=== PATIENT | female | born 1960 | race Caucasian/White ===

== ENCOUNTER 2021-12-18 15:54 | Emergency (ER) | payer BC, OTHER ==
[~2021-12-18] VITALS: Ht 177 cm; Wt 71.5 kg
[~2021-12-18 15:54] MED LIST: ACHD5005; OLME1TAB18; SCOP1PAT10
--- NOTE | 2021-12-18 16:11 | ED Cardiac General ---
History of Present Illness General Chief Complaint: Cardiac/General Problems Stated Complaint: HIGH BP History of Present Illness Date Seen by Provider: Dec 18, 2021 Time Seen by Provider: 16:05 Initial Comments 61 yr F with PMH of HTN is here with c/o elevated BP and headache today morning. She took Ibuprofen for the headache and it has since resolved. Patient takes losartan half tablet of 12.5 daily, which means 6.25mg daily, and is compliant with her medication regimen. Patient does not normally check her blood pressure on a daily basis, however today she had a headache so she checked her BP and she noticed that it was very high. Denies chest pain, palpitations, shortness of breath, dizziness, nausea, and vomiting. Allergies and Home Medications Allergies Coded Allergies: No Known Drug Allergies (Unverified , 12/18/21) Patient Home Medication List Home Medication List Reviewed: Yes Review of Systems Review of Systems Constitutional: no symptoms reported EENTM: No Symptoms Reported Respiratory: No Symptoms Reported Cardiovascular: Other Gastrointestinal: No Symptoms Reported Genitourinary: No Symptoms Reported Musculoskeletal: no symptoms reported Skin: no symptoms reported Psychiatric/Neurological: No Symptoms Reported Endocrine: No Symptoms Reported Hematologic/Lymphatic: No Symptoms Reported Physical Exam Vital Signs Vital Signs - First Documented 12/18/21 12/18/21 16:05 17:55 Temp 36.1 Pulse 80 Resp 16 B/P (MAP) 221/116 (151) Pulse Ox 100 O2 Delivery Room Air Capillary Refill : Height, Weight, BMI Height: '" Weight: lbs. oz. kg; BMI Method: General Appearance: No Apparent Distress HEENT: PERRL/EOMI, Normal ENT Inspection Neck: Full Range of Motion, Supple Respiratory: Chest Non Tender, Lungs Clear, Normal Breath Sounds Cardiovascular: Regular Rate, Rhythm, No Murmur, Normal Peripheral Pulses Gastrointestinal: Normal Bowel Sounds, No Pulsatile Mass, Non Tender, Soft Extremity: Normal Range of Motion Neurologic/Psychiatric: Alert, Oriented x3 Skin: Normal Color Progress/Results/Core Measures Results/Orders Lab Results Laboratory Tests Test 12/18/21 16:15 Range/Units White Blood Count 6.4 4.3-11.0 10^3/uL Red Blood Count 4.76 3.80-5.11 10^6/uL Hemoglobin 13.6 11.5-16.0 g/dL Hematocrit 43 35-52 % Mean Corpuscular Volume 89 80-99 fL Mean Corpuscular Hemoglobin 29 25-34 pg Mean Corpuscular Hemoglobin Concent 32 32-36 g/dL Red Cell Distribution Width 13.6 10.0-14.5 % Platelet Count 191 130-400 10^3/uL Mean Platelet Volume 11.1 9.0-12.2 fL Immature Granulocyte % (Auto) 0 % Neutrophils (%) (Auto) 40 L 42-75 % Lymphocytes (%) (Auto) 43 12-44 % Monocytes (%) (Auto) 15 H 0-12 % Eosinophils (%) (Auto) 2 0-10 % Basophils (%) (Auto) 1 0-10 % Neutrophils # (Auto) 2.6 1.8-7.8 10^3/uL Lymphocytes # (Auto) 2.8 1.0-4.0 10^3/uL Monocytes # (Auto) 0.9 0.0-1.0 10^3/uL Eosinophils # (Auto) 0.1 0.0-0.3 10^3/uL Basophils # (Auto) 0.0 0.0-0.1 10^3/uL Immature Granulocyte # (Auto) 0.0 0.0-0.1 10^3/uL Sodium Level 140 135-145 MMOL/L Potassium Level 4.0 3.6-5.0 MMOL/L Chloride Level 101 98-107 MMOL/L Carbon Dioxide Level 24 21-32 MMOL/L Anion Gap 15 H 5-14 MMOL/L Blood Urea Nitrogen 21 H 7-18 MG/DL Creatinine 0.80 0.60-1.30 MG/DL Estimat Glomerular Filtration Rate 84 BUN/Creatinine Ratio 26 Glucose Level 98 70-105 MG/DL Calcium Level 9.7 8.5-10.1 MG/DL Corrected Calcium 8.5-10.1 MG/DL Total Bilirubin 0.7 0.1-1.0 MG/DL Aspartate Amino Transf (AST/SGOT) 25 5-34 U/L Alanine Aminotransferase (ALT/SGPT) 16 0-55 U/L Alkaline Phosphatase 105 40-136 U/L Troponin I < 0.30 <0.30 NG/ML Total Protein 7.5 6.4-8.2 GM/DL Albumin 4.9 H 3.2-4.5 GM/DL My Orders Orders - JENNIFER GODINEZ MD Cbc With Automated Diff (12/18/21 16:12) Comprehensive Metabolic Panel (12/18/21 16:12) Troponin I Fs (12/18/21 16:12) Ekg Tracing (12/18/21 16:12) Monitor-Rhythm Ecg Trace Only (12/18/21 16:12) Clonidine Tablet (Catapres Tablet) (12/18/21 16:25) Clonidine Tablet (Catapres Tablet) (12/18/21 16:25) Clonidine Tablet (Catapres Tablet) (12/18/21 17:32) Vital Signs/I&O 12/18/21 12/18/21 16:05 17:55 Temp 36.1 Pulse 80 78 Resp 16 16 B/P (MAP) 221/116 (151) 148/100 Pulse Ox 100 100 O2 Delivery Room Air Room Air Progress Progress Note : Progress Note HYPERTENSIVE URGENCY - EKG: unchanged - Labs unremarkable - Clonidine 0.1mg STAT x2 Systolic improved from 190's to 170's on first tab, then 140's by 2nd tab. Headache resolved - Advised to increase Losartan to one full tab daily, and f/u with PCP for further assessment and medication adjustment. - F/u with PCP tomorrow -The patient was seen in the ED, and treated appropriately to presentation at a specific point in time. Patient is informed that there is a possibility that disease and illness can evolve and change in acuity rapidly or slowly after patient is discharged from the ER. Precautionary advice given to the patient for immediate return to ER if symptoms worsen or do not resolve, and to seek emergency care sooner rather than later. Pt also advised on the importance of PCP follow up and compliance with management and follow up plan. Pt verbally expressed understanding. Departure Impression Primary Impression: Hypertensive urgency Disposition: HOME, SELF-CARE Condition: Improved Departure-Patient Inst. Referrals: OTF PATIÑO APRN (PCP/Family) Primary Care Physician Patient Instructions: High Blood Pressure (DC), Heart Healthy Diet Add. Discharge Instructions: take full tablet of Losartan daily and f/u with PCP tomorrow for further adj ustment of BP medications. - Return to ER if symptoms worsen or do not improve. All discharge instructions reviewed with patient and/or family. Voiced understanding. JENNIFER GODINEZ MD Dec 18, 2021 16:11
[2021-12-18] MEDS ORDERED: cloNIDine 0.1 MG (CATAPRES) TAB PO STA ×2 (16:25→17:32)
[2021-12-18] MEDS ORDERED: cloNIDine 0.1 MG (CATAPRES) TAB ONE (16:25)
[2021-12-18 16:26] LABS: BASOPHILS % (AUTO) 1 % (0-10); EOSINOPHILS # (AUTO) 0.1 10^3/uL (0.0-0.3); EOSINOPHILS % (AUTO) 2 % (0-10); HEMATOCRIT 43 % (35-52); HEMOGLOBIN 13.6 g/dL (11.5-16.0); LYMPHOCYTES # (AUTO) 2.8 10^3/uL (1.0-4.0); LYMPHOCYTES % (AUTO) 43 % (12-44); MEAN CORPUSCULAR HEMOGLOBIN 29 pg (25-34); MEAN CORPUSCULAR HGB CONC 32 g/dL (32-36); MEAN CORPUSCULAR VOLUME 89 fL (80-99); MEAN PLATELET VOLUME 11.1 fL (9.0-12.2); MONOCYTES # (AUTO) 0.9 10^3/uL (0.0-1.0); MONOCYTES % (AUTO) 15 % (0-12); NEUTROPHILS # (AUTO) 2.6 10^3/uL (1.8-7.8); NEUTROPHILS % (AUTO) 40 % (42-75); PLATELET COUNT 191 10^3/uL (130-400); WHITE BLOOD COUNT 6.4 10^3/uL (4.3-11.0)
[2021-12-18 16:55] LABS: ALKALINE PHOSPHATASE 105 U/L (40-136); BILIRUBIN,TOTAL 0.7 MG/DL (0.1-1.0); BUN/CREATININE RATIO 26; CALCIUM 9.7 MG/DL (8.5-10.1); CARBON DIOXIDE 24 MMOL/L (21-32); CHLORIDE 101 MMOL/L (98-107); GFR ESTIMATED 84; GLUCOSE 98 MG/DL (70-105); SODIUM 140 MMOL/L (135-145)
[2021-12-18 16:56] LABS: ALANINE AMINOTRANSFERASE 16 U/L (0-55); ALBUMIN 4.9 GM/DL (3.2-4.5); TOTAL PROTEIN 7.5 GM/DL (6.4-8.2)
[2021-12-18 17:55] VITALS: BP 148/100
== END 2021-12-18 18:10 | disposition home or self-care (01) ==
LOC: ER FS 15:56
DX: I10 Essential (primary) hypertension (principal)
CPT/HCPCS: 36415; 80053; 84484; 85025; 93005; 93041

== ENCOUNTER 2022-01-02 12:14 | Emergency (ER) | payer BC ==
[~2022-01-02] VITALS: Ht 177 cm; Wt 69.4 kg
[2022-01-02] MEDS ORDERED: ASPIRIN 81 MG CHEW (CHILDREN'S ASA) ONE (12:23)
[2022-01-02] MEDS ORDERED: ASPIRIN 81 MG CHEW (CHILDREN'S ASA) PO ONE (12:30)
[2022-01-02 12:33] LABS: BASOPHILS % (AUTO) 1 % (0-10); EOSINOPHILS # (AUTO) 0.1 10^3/uL (0.0-0.3); EOSINOPHILS % (AUTO) 2 % (0-10); HEMATOCRIT 45 % (35-52); HEMOGLOBIN 15.1 g/dL (11.5-16.0); LYMPHOCYTES # (AUTO) 2.3 10^3/uL (1.0-4.0); LYMPHOCYTES % (AUTO) 35 % (12-44); MEAN CORPUSCULAR HEMOGLOBIN 29 pg (25-34); MEAN CORPUSCULAR HGB CONC 34 g/dL (32-36); MEAN CORPUSCULAR VOLUME 88 fL (80-99); MONOCYTES # (AUTO) 1.2 10^3/uL (0.0-1.0); MONOCYTES % (AUTO) 18 % (0-12); NEUTROPHILS # (AUTO) 2.9 10^3/uL (1.8-7.8); NEUTROPHILS % (AUTO) 45 % (42-75); PLATELET COUNT 202 10^3/uL (130-400); WHITE BLOOD COUNT 6.5 10^3/uL (4.3-11.0)
--- NOTE | 2022-01-02 12:35 | ED Chest Pain ---
General Stated Complaint: ELEV BP Source: patient Exam Limitations: no limitations (VERNELL ENAMORADO MED STUDENT) History of Present Illness Date Seen by Provider: Jan 02, 2022 Time Seen by Provider: 12:16 Initial Comments Mrs. Gonzalez is a 61yo female with history of HTN that presents today from PCP office due to elevated blood pressure as well as some chest pressure. She states that she has chonic high blood pressure and when her pressure is high she has the feeling of tightness in her chest. Today in the ED her blood pressure was 240/118. Says the pressure is over the L side of her chest. Does not radiate, would rate the pain about a 2/10. This has been off and on for the past couple of weeks. Today she states it started around 1030. She had an appointment with her PCP at 11 today who sent her to the ED due to the tightness. She recently started taking a combination losartan/hctz pill a couple of days ago. This tightness is not associated with activity. She was sen on the of last month for a similar complaint. She does not smoke, drink, or use drugs. No previous heart cath. She also states she had covid in the eary-mid portion of november. (VERNELL ENAMORADO MED STUDENT) Timing/Duration: 1-3 hours, intermittent Severity/Quality: pressure Location: central (Left-sided mid chest) Radiation: no radiation Activities at Onset: none Prior CP/Workup: no prior cardiac workup Modifying Factors: improves with rest ASA po WINDOW INSTALLER: No NTG SL WINDOW INSTALLER: No Associated Symptoms: No abdominal pain, No back pain, No diaphoresis, No edema, No fever/chills, No nausea/vomiting, No shortness of breath, No syncope, No weakness (WILLIE ALMONTE MD) Allergies and Home Medications Allergies Coded Allergies: No Known Drug Allergies (Unverified , 12/18/21) Patient Home Medication List Home Medication List Reviewed: Yes (WILLIE ALMONTE MD) Losartan/Hydrochlorothiazide (Losartan-Hctz 100-12.5 mg Tab) 1 Each Tablet, 1 EACH PO DAILY, (Reported) Entered as Reported by: colby butt on 01/02/22 1320 Last Action: New Order Discontinued Medications Hydrocodone Bit/Acetaminophen (Lortab 5 Mg Tablet) 1 Each Tablet, (Reported) Discontinued Reason: No Longer Taking Entered as Reported by: DAT HOWARD on 01/30/17905 Last Action: Discontinued Olmesartan/Hydrochlorothiazide (Benicar Hct 20-12.5 mg Tablet) 1 Each Tablet, (Reported) Discontinued Reason: No Longer Taking Entered as Reported by: DAT HOWARD on 01/30/17905 Last Action: Discontinued Scopolamine (Transderm-Scop) 1 Each Patch.td72, (Reported) Discontinued Reason: No Longer Taking Entered as Reported by: DAT HOWARD on 01/30/17905 Last Action: Discontinued Review of Systems Review of Systems Constitutional: No chills, No fever Respiratory: Denies Cough, Denies Shortness of Air, Denies Wheezing Cardiovascular: Chest Pain (described as pressure); Denies Edema, Denies Palpitations, Denies Syncope Gastrointestinal: Denies Constipated, Denies Diarrhea, Denies Nausea, Denies Vomiting Genitourinary: Denies Frequency, Denies Hematuria Musculoskeletal: No joint pain, No joint swelling Psychiatric/Neurological: Denies Headache, Denies Numbness (VERNELL ENAMORADO STUDENT) Respiratory: Denies SOA With Exertion Cardiovascular: Chest Pain (described as pressure); Denies Irregular Heart Rate, Denies Lightheadedness Musculoskeletal: No back pain, No muscle pain (WILLIE ALMONTE MD) All Other Systems Reviewed Negative Unless Noted: Yes (WILLIE ALMONTE MD) Past Wpzlmfu-Ohglom-Wbtojl Hx Patient Social History Tobacco Use?: No Use of E-Cig and/or Vaping dev: No Substance use?: No Alcohol Use?: Yes Alcohol Frequency: Once in a while (WILLIE ALMONTE MD) Past Medical History Orthopedic Hypertension (VERNELL ENAMORADO STUDENT) Family Medical History Reviewed Nursing Family Hx (WILLIE ALMONTE MD) No Pertinent Family Hx (VERNELL ENAMORADO) Physical Exam Vital Signs Vital Signs - First Documented 01/02/22 12:54 Temp 36.8 Pulse 88 Resp 20 B/P (MAP) 224/126 (158) Pulse Ox 97 O2 Delivery Room Air (WILLIE ALMONTE MD) Vital Signs Capillary Refill : (VERNELL ENAMORADO STUDENT) Height, Weight, BMI Height: 5'10.00" Weight: 140lbs. oz. 63.517665ul; 22.00 BMI Method:Stated General Appearance: No Apparent Distress, WD/WN HEENT: PERRL/EOMI Respiratory: Chest Non Tender, Lungs Clear, Normal Breath Sounds Cardiovascular: Regular Rate, Rhythm, No Edema, No Murmur, Normal Peripheral Pulses Gastrointestinal: Normal Bowel Sounds, Non Tender, Soft Extremity: Non Tender, No Calf Tenderness, No Pedal Edema Neurologic/Psychiatric: Alert, Oriented x3, Normal Mood/Affect Skin: Normal Color, Warm/Dry (VERNELL ENAMORADO MED STUDENT) General Appearance: No Apparent Distress, WD/WN Neck: Non Tender, Supple Respiratory: Lungs Clear, Normal Breath Sounds Cardiovascular: Regular Rate, Rhythm, No Edema, No Murmur Gastrointestinal: Non Tender, Soft Extremity: Non Tender, No Calf Tenderness, No Pedal Edema Neurologic/Psychiatric: Alert, Oriented x3, Normal Mood/Affect Skin: Normal Color, Warm/Dry (WILLIE ALMONTE MD) Progress/Results/Core Measures Results/Orders Lab Results Laboratory Tests Test 01/02/22 12:27 01/02/22 14:28 Range/Units White Blood Count 6.5 4.3-11.0 10^3/uL Red Blood Count 5.15 H 3.80-5.11 10^6/uL Hemoglobin 15.1 11.5-16.0 g/dL Hematocrit 45 35-52 % Mean Corpuscular Volume 88 80-99 fL Mean Corpuscular Hemoglobin 29 25-34 pg Mean Corpuscular Hemoglobin Concent 34 32-36 g/dL Red Cell Distribution Width 13.4 10.0-14.5 % Platelet Count 202 130-400 10^3/uL Mean Platelet Volume 11.0 9.0-12.2 fL Immature Granulocyte % (Auto) 0 % Neutrophils (%) (Auto) 45 42-75 % Lymphocytes (%) (Auto) 35 12-44 % Monocytes (%) (Auto) 18 H 0-12 % Eosinophils (%) (Auto) 2 0-10 % Basophils (%) (Auto) 1 0-10 % Neutrophils # (Auto) 2.9 1.8-7.8 10^3/uL Lymphocytes # (Auto) 2.3 1.0-4.0 10^3/uL Monocytes # (Auto) 1.2 H 0.0-1.0 10^3/uL Eosinophils # (Auto) 0.1 0.0-0.3 10^3/uL Basophils # (Auto) 0.0 0.0-0.1 10^3/uL Immature Granulocyte # (Auto) 0.0 0.0-0.1 10^3/uL Neutrophils % (Manual) 41 % Lymphocytes % (Manual) 24 % Monocytes % (Manual) 18 % Eosinophils % (Manual) 2 % Basophils % (Manual) 1 % Band Neutrophils 4 % Atypical Lymphocytes 10 % Platelet Estimate NORMAL Blood Morphology Comment NORMAL Prothrombin Time 13.3 12.2-14.7 SEC INR Comment 1.0 0.8-1.4 Activated Partial Thromboplast Time 28 24-35 SEC D-Dimer 0.25 0.00-0.49 UG/ML Sodium Level 135 135-145 MMOL/L Potassium Level 3.9 3.6-5.0 MMOL/L Chloride Level 96 L 98-107 MMOL/L Carbon Dioxide Level 23 21-32 MMOL/L Anion Gap 16 H 5-14 MMOL/L Blood Urea Nitrogen 14 7-18 MG/DL Creatinine 0.84 0.60-1.30 MG/DL Estimat Glomerular Filtration Rate 80 BUN/Creatinine Ratio 17 Glucose Level 90 70-105 MG/DL Calcium Level 10.2 H 8.5-10.1 MG/DL Corrected Calcium 8.5-10.1 MG/DL Magnesium Level 1.9 1.6-2.4 MG/DL Total Bilirubin 0.7 0.1-1.0 MG/DL Aspartate Amino Transf (AST/SGOT) 26 5-34 U/L Alanine Aminotransferase (ALT/SGPT) 20 0-55 U/L Alkaline Phosphatase 113 40-136 U/L Myoglobin 28.7 10.0-92.0 NG/ML Troponin I < 0.30 < 0.30 <0.30 NG/ML Total Protein 7.9 6.4-8.2 GM/DL Albumin 5.2 H 3.2-4.5 GM/DL (WILLIE ALMONTE MD) My Orders Orders - WILLIE ALMONTE MD Cbc With Automated Diff (01/02/22 12:23) Magnesium (01/02/22 12:23) Chest 1 View Ap/Pa Only (01/02/22 12:23) Ekg Tracing (01/02/22 12:23) Comprehensive Metabolic Panel (01/02/22 12:23) Myoglobin Serum (01/02/22 12:23) Protime With Inr (01/02/22 12:23) Partial Thromboplastin Time (01/02/22 12:23) Monitor-Rhythm Ecg Trace Only (01/02/22 12:23) Lipid Panel (01/03/22 06:00) Aspirin Chewable Tablet (Baby Aspirin Ch (01/02/22 12:30) Ed Iv/Invasive Line Start (01/02/22 12:23) Troponin I Fs (01/02/22 12:23) Aspirin Chewable Tablet (Baby Aspirin Ch (01/02/22 12:23) Metoprolol Tartrate Injection (Lopressor (01/02/22 12:45) Metoprolol Tartrate (Ir) Tab (Lopressor (01/02/22 12:45) Fibrin Degradation Products (01/02/22 12:39) Manual Differential (01/02/22 12:27) Amlodipine Tablet (Norvasc Tablet) (01/02/22 13:45) Troponin I Fs (01/02/22 14:30) (WILLIE ALMONTE MD) Medications Given in ED Current Medications Medications Dose Ordered Sig/Ebenezer Route Start Time Stop Time Status Last Admin Dose Admin Amlodipine Besylate 5 mg ONCE ONCE PO 01/02/22 13:45 01/02/22 13:46 DC 01/02/22 13:36 5 MG Aspirin 324 mg ONCE ONCE PO 01/02/22 12:30 01/02/22 12:31 DC 01/02/22 12:44 324 MG Metoprolol Tartrate 5 mg ONCE ONCE IV 01/02/22 12:45 01/02/22 12:46 DC 01/02/22 12:39 5 MG Metoprolol Tartrate 50 mg ONCE ONCE PO 01/02/22 12:45 01/02/22 12:46 DC 01/02/22 12:40 50 MG (WILLIE ALMONTE MD) Vital Signs/I&O 01/02/22 01/02/22 01/02/22 12:54 13:37 14:35 Temp 36.8 Pulse 88 59 56 Resp 20 18 18 B/P (MAP) 224/126 (158) 165/101 173/105 Pulse Ox 97 99 99 O2 Delivery Room Air Room Air Room Air (WILLIE ALMONTE MD) Progress Progress Note : Time: 12:40 Progress Note Pt was seen and examined. Blood pressure in the ED was 220/118. Will get basic labs, CXR, trop, ddimer, ECG to rule out ACS. Likely the pressure is due to the elevated blood pressure and not an ischemic event. Will give metoprolol as well as some asprin at this time to work on getting blood pressure down. Will see how she responds but can consider hydralazine or nitro if needed. 1255: CXR has been read and does not show ant abnormalities. CBC resulted with no significant findings. No leukocytosis or anemia. Discussed with patient that she should get scheduled with a tumbling machine operator. 1300: CMP resulted and there is no elevated troponin. Kidney function is normal. Will get repeat troponin. BP is 182/101 at this moment with HR in the upper 50 to low 60 range. (VERNELL ENAMORADO MED STUDENT) Progress Note : Progress Note I have seen and evaluated the patient and agree with above except as indicated. I have directed the plan of care. Patient is here with uncontrolled hypertension. She went to clinic today and they sent her here because she had 2 out of 10 chest pressure on the left side that was nonradiating. This does not seem to change since starting today. She has had this intermittently over the last few weeks with high blood pressure. She was seen here on 18 December for the same. She is currently on losartan but has started from the low-dose and has gone up to 100 mg daily with HCTZ 25 mg daily now. She took that this morning. She also has clonidine prescribed at she will take intermittently. She has just been started on that as well. Does have strong family history of cardiac disease. She did not know that she had hypertension until testing at a grocery store and finding high blood pressure and then she did follow-up. Denies nausea, vomiting or weakness. Evaluation as above. Plan for chest pain protocol and we will give metoprolol 5 mg IV followed by metoprolol tartrate 50 mg p.o. Monitor patient. 1340: I have discussed the case with Dr. Wong. Patient's blood pressure has improved to 164/104 with heart rate of 55. We will go ahead and initiate amlodipine 5 mg p.o. now and he will see her in office tomorrow morning at 0830. I did discuss this with the patient and she agrees. We will get second set of heart enzymes before discharge and continue to monitor for improvement. Patient is very appreciative of the plan and follow-up. Monitor patient. 1521: Repeat troponin negative. Blood pressure currently 145/94 and patient is pain-free. She has walked without difficulty. Heart rate of 60 and O2 sat 99% on room air. I have discussed at length with her regarding follow-up and she will follow up with Dr. Wong in the morning as discussed and she is very appreciative of the follow-up and care. Discharged home with return precautions. Patient verbalized understanding instructions and agreement with plan. (WILLIE ALMONTE MD) Initial ECG Impression Date: Jan 02, 2022 Initial ECG Impression Time: 12:23 Initial ECG Rate: 80 Initial ECG Rhythm: Normal Sinus Comment Sinus rhythm with prolonged VA interval and incomplete right bundle branch block. Left ventricular hypertrophy noted. Right axis deviation. No evidence of ST elevation [place]. Similar to previous of 12/18/21. Interpreted by me. (WILLIE ALMONTE MD) Diagnostic Imaging Diagonstic Imaging: Xray Plain Films/CT/US/NM/MRI: chest Comments [facility], [place] NAME: MILES GONZALEZ [facility] REC#: [id number] PT STATUS: REG ER : 1960 PHYSICIAN: WILLIE ALMONTE MD ADMIT DATE: 01/02/22/ER FS Draft Date of Exam:01/02/22 CHEST 1 VIEW AP/PA ONLY EXAMINATION: Chest, 1 view. HISTORY: Chest pain. COMPARISON: None available. FINDINGS: Heart size and pulmonary vasculature are normal. The lungs are clear without consolidation, pleural effusion, or pneumothorax. The osseous structures are intact. IMPRESSION: No acute radiographic abnormality in the chest. Dictated on workstation # [id number] Dict: 01/02/22 1243 Trans: 01/02/22 1247 [id number] Interpreted by: NAA JENKINS DO Electronically signed by: (WILLIE ALMONTE MD) Departure Impression Primary Impression: Uncontrolled hypertension Additional Impression: Chest pain Qualified Codes: R07.9 - Chest pain, unspecified Disposition: 01 HOME, SELF-CARE Condition: Improved Departure-Patient Inst. Decision time for Depature: 15:22 (WILLIE ALMONTE MD) Referrals: OTF PATIÑO APRN (PCP) Primary Care Physician [facility] (Family) Primary Care Physician TACHO WONG MD Patient Instructions: Chest Pain (DC), High Blood Pressure (DC) Add. Discharge Instructions: Follow-up at Dr. Wong's office at 0830 in the morning for appointment with him. Continue losartan 100 mg/HCTZ 25 mg combination blood pressure medicine as previously prescribed. Return for chest pain, fever, vomiting, weakness, breathing problems or other concerns as needed. Copy Copies To 1: TACHO WONG MD, DEREK MED STUDENT Jan 02, 2022 12:35 WILLIE ALMONTE MD Jan 02, 2022 13:50
[2022-01-02 12:45] LABS: PROTHROMBIN TIME PATIENT 13.3 SEC (12.2-14.7)
[2022-01-02] MEDS ORDERED: meTOprolol TARTRATE 25 MG (LOPRESSOR) TABLET PO ONE (12:45)
[2022-01-02] MEDS ORDERED: meTOprolol 5 MG/5 ML (LOPRESSOR) VIAL IV ONE (12:45)
--- NOTE | 2022-01-02 12:47 | Diagnostic Imaging Report ---
EXAMINATION: Chest, 1 view. HISTORY: Chest pain. COMPARISON: None available. FINDINGS: Heart size and pulmonary vasculature are normal. The lungs are clear without consolidation, pleural effusion, or pneumothorax. The osseous structures are intact. IMPRESSION: No acute radiographic abnormality in the chest. Dictated by: Dictated on workstation # [id number]
[2022-01-02 12:53] LABS: ALANINE AMINOTRANSFERASE 20 U/L (0-55); ALKALINE PHOSPHATASE 113 U/L (40-136); BILIRUBIN,TOTAL 0.7 MG/DL (0.1-1.0); BUN/CREATININE RATIO 17; CALCIUM 10.2 MG/DL (8.5-10.1); CARBON DIOXIDE 23 MMOL/L (21-32); CHLORIDE 96 MMOL/L (98-107); CREATININE SERUM 0.84 MG/DL (0.60-1.30); GFR ESTIMATED 80; GLUCOSE 90 MG/DL (70-105); MAGNESIUM 1.9 MG/DL (1.6-2.4); POTASSIUM 3.9 MMOL/L (3.6-5.0); SODIUM 135 MMOL/L (135-145)
[2022-01-02 12:54] LABS: ALBUMIN 5.2 GM/DL (3.2-4.5); TOTAL PROTEIN 7.9 GM/DL (6.4-8.2)
[2022-01-02 13:06] LABS: ATYPICAL LYMPHOCYTES 10 %; BAND NEUTROPHILS 4 %; BASOPHILS % (MANUAL) 1 %; EOSINOPHILS % (MANUAL) 2 %; LYMPHOCYTES % (MANUAL) 24 %; MONOCYTES % (MANUAL) 18 %; NEUTROPHILS % (MANUAL) 41 %
[2022-01-02 13:07] LABS: PLATELET ESTIMATE NORMAL; RBC MORPH NORMAL
[2022-01-02] MEDS ORDERED: LOSA1TAB26 PO (13:20)
[2022-01-02] MEDS ORDERED: amLODIPine 5 MG (NORVASC) TAB PO ONE (13:45)
[2022-01-02 15:35] VITALS: BP 159/87
== END 2022-01-02 15:39 | disposition home or self-care (01) ==
LOC: EDUNIT# 12:14 → ER FS 12:15
DX: I10 Essential (primary) hypertension (principal); R07.9 Chest pain, unspecified; Z86.16 Personal history of COVID-19
CPT/HCPCS: 36415; 71045; 80053; 83735; 83874; 84484; 85007; 85027; 85379; 85610; 85730; 93005; 93041

== ENCOUNTER → 2022-01-17 | Outpatient (CLI) | payer BC ==
[~2022-01-17] MED LIST changes: +LOSA1TAB26 PO
== END ==
LOC: CARDFS 08:43
PROVIDERS: ATTEND Internal Medicine Cardiovascular Disease
DX: I08.2 Rheumatic disorders of both aortic and tricuspid valves (principal); I10 Essential (primary) hypertension; I25.10 Atherosclerotic heart disease of native coronary artery without angina pectoris
CPT/HCPCS: 93306

== ENCOUNTER → 2022-02-13 | Outpatient (CLI) | payer BC ==
[2022-02-13 14:39] VITALS: BP 193/103
== END ==
LOC: CARD 14:30
PROVIDERS: ATTEND Internal Medicine Cardiovascular Disease
DX: I10 Essential (primary) hypertension (principal); I25.10 Atherosclerotic heart disease of native coronary artery without angina pectoris
CPT/HCPCS: 93351